=== PATIENT | male | born 1955 | race Caucasian/White ===

== ENCOUNTER 2018-01-21 04:10 | Emergency (ER) | payer OTHER ==
[~2018-01-21] VITALS: Ht 180.3 cm; Wt 87.0 kg
[~2018-01-21 04:10] MED LIST: BACTRIM,SEPT1 TABLET PO; CLEOCIN300 MG PO; DILAUDID2 MG PO; EXFORGE 10/11 TABLET PO; FLAGYL500 MG PO; FLEXERIL10 MG PO; KEFLEX500 MG PO; MOTRIN800 MG PO; NAPROSYN500 MG PO; NOHOMEMEDS; PERCOCET 5/31 TABLET PO; PREDNISONE50 MG PO; VICODIN ES 71 TABLET PO; exforge
[2018-01-21] MEDS ORDERED: ULTRAM50 MG PO (04:55)
[2018-01-21] MEDS ORDERED: FLEXERIL10 MG PO (04:55)
[2018-01-21 05:39] VITALS: BP 134/96
== END 2018-01-21 05:40 | disposition home or self-care (01) ==
LOC: EME 04:10
DX: M54.9 Dorsalgia, unspecified (principal); G89.29 Other chronic pain; I10 Essential (primary) hypertension; K21.9 Gastro-esophageal reflux disease without esophagitis; E78.5 Hyperlipidemia, unspecified; E11.9 Type 2 diabetes mellitus without complications; F17.200 Nicotine dependence, unspecified, uncomplicated
CPT/HCPCS: 71046; 99281; 99283